=== PATIENT | female | born 1940 | race Caucasian/White ===

== ENCOUNTER 2021-07-21 01:04 | Inpatient (IN) | payer MEDICARE ==
[2021-07-21 01:54] LABS: #Basophils 0.1 thou/uL (0.0-0.2); #Eosinphils 0.1 thou/uL (0.0-0.7); #Lymphocytes 0.4 thou/uL (1.20-3.40); #Monocytes 1.6 thou/uL (0.11-0.59); #Neutrophils 13.9 thou/uL (1.40-6.50); %Basophils 0.6 % (0.0-1.0); %Eosinophils 0.4 % (0.0-10.0); %Lymphocytes 2.5 % (21.0-51.0); %Monocytes 9.8 % (0.0-10.0); %Neutrophils 86.6 % (42.0-75.0); Hemoglobin 9.8 g/dL (12.0-16.0); Mean Corpuscular HGB CONC 33.3 g/dL (32.0-36.0); Mean Corpuscular Hemoglobin 32.2 pg (27.0-31.0); Mean Corpuscular Volume 96.8 fL (78.0-98.0); Mean Platelet Volume 6.9 fL (7.4-10.4); Platelet Count 373 thou/uL (130-400); RBC Distribution Width 12.4 % (11.5-14.5); Red Blood Cell (RBC) Count 3.04 mill/uL (4.20-5.40)
[2021-07-21 02:42] LABS: ALT (SGPT) 20 U/L (8-55); AST (SGOT) 30 U/L (5-34); Albumin 2.7 g/dL (3.4-4.8); Alkaline Phosphatase 81 U/L (40-110); Anion Gap 16 mmol/L (10-20); BUN (Urea Nitrogen) 9 mg/dL (9.8-20.1); Bilirubin, Total 0.3 mg/dL (0.2-1.2); Calc. Creatinine Clearance 0 mL/min (70-130); Carbon Dioxide 35 mmol/L (23-31); Chloride 80 mmol/L (98-107); Globulin 4.1 g/dL (2.4-3.5); Glucose 159 mg/dL (83-110); Potassium 4.7 mmol/L (3.5-5.1); Protein, Total 6.8 g/dL (5.8-8.1); Sodium 126 mmol/L (136-145)
[2021-07-21 02:44] LABS: Actual Bicarbonate (HCO3a) 44.2 mEq/L (22-28); Analyzer IN Cardio ER; Base Excess (BEa) 13.9 mEq/L (-2.0 to +3.0); Calcium, Ionized (arterial) 1.15 mmol/L (1.12-1.30); Carboxyhemoglobin (COHb) 0.3 gm% (0.0-3.0); Hemoglobin (Hb) 10.8 g/dL (12.0-16.0); O2 Tension (PaO2), arterial 75.5 mmHg (> 70.0); Potassium - ABG Lab 4.38 mmol/L (3.70-5.30); pH, Arterial 7.27 (7.35-7.45)
[2021-07-21 02:49] LABS: Puncture Site RBA
[2021-07-21] MEDS ORDERED: Acetaminophen 325 MG TAB PO PRN (03:15)
[2021-07-21] MEDS ORDERED: Vancomycin 1 GM/200 ML BAG ONE (04:51)
[2021-07-21] MEDS ORDERED: Cefepime 2 GM VIAL ONE (04:51)
[2021-07-21 05:31] LABS: SARS-CoV-2 NAA Rapid Test Not Detected (NotDetected)
[2021-07-21 07:19] LABS: Anion Gap 12 mmol/L (10-20); BUN (Urea Nitrogen) 9 mg/dL (9.8-20.1); Calc. Creatinine Clearance 108 mL/min (70-130); Calcium 9.2 mg/dL (7.8-10.44); Carbon Dioxide 37 mmol/L (23-31); Chloride 82 mmol/L (98-107); Glucose 130 mg/dL (83-110); Potassium 4.5 mmol/L (3.5-5.1); Sodium 126 mmol/L (136-145)
[2021-07-21] MEDS: Cefepime 1 GM in Sodium Chloride 0.9% 100 ML IVPB SCH ×2 (08:33→22:36)
[2021-07-21] MEDS: methylPREDNISolone Sod Succ 40 MG VIAL IVP SCH ×2 (14:15→22:36)
[2021-07-21] MEDS: Mometasone 200 MCG/Formoterol 5 MCG 120 PUFF INHALER INH SCH (19:30)
[2021-07-21] MEDS: Diltiazem HCl 125 MG, Admixture Fee 1 EACH in Sodium Chloride 0.9% 100 ML IVPB SCH (19:41)
[2021-07-21] MEDS ORDERED: Apixaban 5 MG TAB PO SCH (21:00)
[2021-07-21] MEDS ORDERED: Amiodarone 150 MG, Admixture Fee 1 EACH in Dextrose 5% in Water 100 ML IVPB SCH (22:15)
[2021-07-21] MEDS: Acetaminophen 325 MG TAB PO PRN (22:36)
[2021-07-21] MEDS: Amiodarone 450 MG, Admixture Fee 1 EACH in Dextrose 5% in Water 250 ML IVPB SCH (23:19)
[2021-07-22] MEDS: Diltiazem HCl 125 MG, Admixture Fee 1 EACH in Sodium Chloride 0.9% 100 ML IVPB SCH (03:55)
[2021-07-22 04:01] LABS: #Basophils 0.1 thou/uL (0.0-0.2); #Lymphocytes 0.2 thou/uL (1.20-3.40); #Monocytes 0.2 thou/uL (0.11-0.59); #Neutrophils 8.9 thou/uL (1.40-6.50); %Basophils 1.2 % (0.0-1.0); %Eosinophils 0.1 % (0.0-10.0); %Lymphocytes 1.6 % (21.0-51.0); %Monocytes 2.3 % (0.0-10.0); %Neutrophils 94.9 % (42.0-75.0); Mean Corpuscular HGB CONC 33.6 g/dL (32.0-36.0); Mean Corpuscular Hemoglobin 32.3 pg (27.0-31.0); Mean Platelet Volume 6.8 fL (7.4-10.4); Platelet Count 321 thou/uL (130-400); RBC Distribution Width 12.5 % (11.5-14.5); White Blood Cell (WBC) Count 9.4 thou/uL (4.8-10.8)
[2021-07-22 04:19] LABS: Anion Gap 18 mmol/L (10-20); BUN (Urea Nitrogen) 11 mg/dL (9.8-20.1); Calc. Creatinine Clearance 111 mL/min (70-130); Calcium 8.8 mg/dL (7.8-10.44); Carbon Dioxide 34 mmol/L (23-31); Chloride 83 mmol/L (98-107); Glucose 153 mg/dL (83-110); Potassium 4.8 mmol/L (3.5-5.1); Sodium 130 mmol/L (136-145)
[2021-07-22] MEDS: methylPREDNISolone Sod Succ 40 MG VIAL IVP SCH ×3 (05:14→22:11)
[2021-07-22] MEDS: Mometasone 200 MCG/Formoterol 5 MCG 120 PUFF INHALER INH SCH ×2 (08:16→18:47)
[2021-07-22] MEDS: Cefepime 1 GM in Sodium Chloride 0.9% 100 ML IVPB SCH ×2 (08:42→20:26)
[2021-07-22] MEDS: Amiodarone 450 MG, Admixture Fee 1 EACH in Dextrose 5% in Water 250 ML IVPB SCH (14:03)
[2021-07-22] MEDS: Ondansetron PF 4 MG/2 ML Vial IVP PRN (18:27)
[2021-07-22] MEDS: Metoprolol Tartrate 25 MG TAB PO SCH (20:26)
[2021-07-22] MEDS: Acetaminophen 325 MG TAB PO PRN (22:11)
[2021-07-23] MEDS: Diltiazem HCl 125 MG, Admixture Fee 1 EACH in Sodium Chloride 0.9% 100 ML IVPB SCH ×2 (03:22→17:25)
[2021-07-23] MEDS: methylPREDNISolone Sod Succ 40 MG VIAL IVP SCH ×3 (05:46→21:05)
[2021-07-23] MEDS: Amiodarone 450 MG, Admixture Fee 1 EACH in Dextrose 5% in Water 250 ML IVPB SCH (05:46)
[2021-07-23] MEDS: Mometasone 200 MCG/Formoterol 5 MCG 120 PUFF INHALER INH SCH ×2 (07:44→18:48)
[2021-07-23] MEDS: Cefepime 1 GM in Sodium Chloride 0.9% 100 ML IVPB SCH ×2 (09:14→21:05)
[2021-07-23] MEDS: Metoprolol Tartrate 25 MG TAB PO SCH ×2 (09:14→21:06)
[2021-07-23 09:46] LABS: Mean Corpuscular HGB CONC 30.7 g/dL (32.0-36.0); Mean Corpuscular Hemoglobin 29.2 pg (27.0-31.0); Mean Platelet Volume 6.7 fL (7.4-10.4); Platelet Count 438 thou/uL (130-400); RBC Distribution Width 12.9 % (11.5-14.5); Red Blood Cell (RBC) Count 3.09 mill/uL (4.20-5.40); White Blood Cell (WBC) Count 30.2 thou/uL (4.8-10.8)
[2021-07-23 10:00] LABS: Anion Gap 14 mmol/L (10-20); BUN (Urea Nitrogen) 18 mg/dL (9.8-20.1); Calc. Creatinine Clearance 81 mL/min (70-130); Calcium 9.1 mg/dL (7.8-10.44); Carbon Dioxide 36 mmol/L (23-31); Chloride 85 mmol/L (98-107); Glucose 248 mg/dL (83-110); Potassium 4.3 mmol/L (3.5-5.1); Sodium 131 mmol/L (136-145)
[2021-07-23 10:29] LABS: Band 14 % (5-11); Lymphocytes 1 % (21-51); MDiff Complete? YES; Monocytes 12 % (0-10); Neutrophil 73 % (42-75); Platelet Morphology Comment Appears Increased; Polychromasia SLIGHT = 2-3 cells (100X) (0-2/hpf)
[2021-07-23] MEDS: Amiodarone 200 MG TAB PO SCH ×2 (14:37→21:05)
[2021-07-23] MEDS: Ondansetron PF 4 MG/2 ML Vial IVP PRN (18:25)
[2021-07-23] MEDS: Acetaminophen 325 MG TAB PO PRN (21:06)
[2021-07-24 04:33] LABS: Hemoglobin 8.8 g/dL (12.0-16.0); Mean Corpuscular Hemoglobin 30.7 pg (27.0-31.0); Mean Platelet Volume 6.9 fL (7.4-10.4); Platelet Count 358 thou/uL (130-400); RBC Distribution Width 12.9 % (11.5-14.5); Red Blood Cell (RBC) Count 2.87 mill/uL (4.20-5.40); White Blood Cell (WBC) Count 27.7 thou/uL (4.8-10.8)
[2021-07-24 04:44] LABS: BUN (Urea Nitrogen) 22 mg/dL (9.8-20.1); Calc. Creatinine Clearance 87 mL/min (70-130); Calcium 8.9 mg/dL (7.8-10.44); Glucose 212 mg/dL (83-110)
[2021-07-24 04:53] LABS: Anion Gap 13 mmol/L (10-20); Carbon Dioxide 37 mmol/L (23-31); Chloride 86 mmol/L (98-107); Potassium 4.8 mmol/L (3.5-5.1); Sodium 131 mmol/L (136-145)
[2021-07-24 05:12] LABS: Band 7 % (5-11); MDiff Complete? YES; Monocytes 1 % (0-10); Neutrophil 92 % (42-75)
[2021-07-24] MEDS: methylPREDNISolone Sod Succ 40 MG VIAL IVP SCH ×3 (05:32→21:04)
[2021-07-24] MEDS: Mometasone 200 MCG/Formoterol 5 MCG 120 PUFF INHALER INH SCH ×2 (08:00→18:29)
[2021-07-24] MEDS: Metoprolol Tartrate 25 MG TAB PO SCH ×2 (08:55→21:03)
[2021-07-24] MEDS: Cefepime 1 GM in Sodium Chloride 0.9% 100 ML IVPB SCH ×2 (08:55→21:02)
[2021-07-24] MEDS: Diltiazem HCl 125 MG, Admixture Fee 1 EACH in Sodium Chloride 0.9% 100 ML IVPB SCH (08:55)
[2021-07-24] MEDS: Amiodarone 200 MG TAB PO SCH ×3 (08:55→21:03)
[2021-07-24] MEDS: Acetaminophen 325 MG TAB PO PRN (21:03)
[2021-07-25 04:47] LABS: #Lymphocytes 0.3 thou/uL (1.20-3.40); #Monocytes 0.8 thou/uL (0.11-0.59); #Neutrophils 20.5 thou/uL (1.40-6.50); %Eosinophils 0.1 % (0.0-10.0); %Lymphocytes 1.2 % (21.0-51.0); %Monocytes 3.6 % (0.0-10.0); %Neutrophils 95.1 % (42.0-75.0); Mean Corpuscular HGB CONC 31.4 g/dL (32.0-36.0); Mean Corpuscular Hemoglobin 30.2 pg (27.0-31.0); Mean Corpuscular Volume 96.1 fL (78.0-98.0); Mean Platelet Volume 6.7 fL (7.4-10.4); Platelet Count 333 thou/uL (130-400); RBC Distribution Width 12.7 % (11.5-14.5); Red Blood Cell (RBC) Count 2.98 mill/uL (4.20-5.40); White Blood Cell (WBC) Count 21.6 thou/uL (4.8-10.8)
[2021-07-25 04:55] LABS: Anion Gap 13 mmol/L (10-20); BUN (Urea Nitrogen) 25 mg/dL (9.8-20.1); Calc. Creatinine Clearance 89 mL/min (70-130); Calcium 8.6 mg/dL (7.8-10.44); Carbon Dioxide 36 mmol/L (23-31); Chloride 89 mmol/L (98-107); Glucose 206 mg/dL (83-110); Potassium 4.8 mmol/L (3.5-5.1); Sodium 133 mmol/L (136-145)
[2021-07-25] MEDS: methylPREDNISolone Sod Succ 40 MG VIAL IVP SCH ×3 (05:40→21:06)
[2021-07-25] MEDS: Diltiazem HCl 125 MG, Admixture Fee 1 EACH in Sodium Chloride 0.9% 100 ML IVPB SCH (05:41)
[2021-07-25] MEDS: Mometasone 200 MCG/Formoterol 5 MCG 120 PUFF INHALER INH SCH ×2 (07:12→18:53)
[2021-07-25] MEDS: Amiodarone 200 MG TAB PO SCH ×3 (08:42→21:05)
[2021-07-25] MEDS: Metoprolol Tartrate 25 MG TAB PO SCH (08:42)
[2021-07-25] MEDS: Cefepime 1 GM in Sodium Chloride 0.9% 100 ML IVPB SCH ×2 (08:43→21:04)
[2021-07-25] MEDS ORDERED: Furosemide 40 MG/4 ML VIAL SLOW IVP SCH (14:45)
[2021-07-25] MEDS ORDERED: Furosemide 40 MG TAB PO SCH (14:45)
[2021-07-25] MEDS ORDERED: Metoprolol Tartrate 25 MG TAB PO SCH (21:00)
[2021-07-25] MEDS: Acetaminophen 325 MG TAB PO PRN (21:05)
[2021-07-26 05:16] LABS: BUN (Urea Nitrogen) 23 mg/dL (9.8-20.1); Calc. Creatinine Clearance 90 mL/min (70-130); Calcium 8.9 mg/dL (7.8-10.44); Glucose 193 mg/dL (83-110)
[2021-07-26 05:21] LABS: Band 3 % (5-11); Hemoglobin 9.8 g/dL (12.0-16.0); Hypochromia SLIGHT = 6-15 cells (100X) (0-5/hpf); Lymphocytes 3 % (21-51); MDiff Complete? YES; Mean Corpuscular HGB CONC 31.7 g/dL (32.0-36.0); Mean Corpuscular Hemoglobin 30.5 pg (27.0-31.0); Mean Corpuscular Volume 96.3 fL (78.0-98.0); Mean Platelet Volume 6.7 fL (7.4-10.4); Monocytes 8 % (0-10); Neutrophil 86 % (42-75); Platelet Count 358 thou/uL (130-400); Platelet Morphology Comment Appears Adequate; RBC Distribution Width 12.9 % (11.5-14.5); Red Blood Cell (RBC) Count 3.21 mill/uL (4.20-5.40); White Blood Cell (WBC) Count 21.6 thou/uL (4.8-10.8)
[2021-07-26 05:25] LABS: Anion Gap 15 mmol/L (10-20); Carbon Dioxide 36 mmol/L (23-31); Chloride 88 mmol/L (98-107); Potassium 4.1 mmol/L (3.5-5.1); Sodium 135 mmol/L (136-145)
[2021-07-26] MEDS: methylPREDNISolone Sod Succ 40 MG VIAL IVP SCH ×3 (05:29→21:41)
[2021-07-26] MEDS ORDERED: Digoxin 0.5 MG/2 ML AMP SLOW IVP SCH ×2 (08:15→11:00)
[2021-07-26] MEDS: Mometasone 200 MCG/Formoterol 5 MCG 120 PUFF INHALER INH SCH ×2 (08:22→19:44)
[2021-07-26] MEDS ORDERED: Furosemide 40 MG/4 ML VIAL SLOW IVP SCH (08:30)
[2021-07-26] MEDS ORDERED: Furosemide 40 MG TAB PO SCH (09:00)
[2021-07-26] MEDS: Potassium Chloride 20 MEQ TAB PO SCH ×2 (09:12→15:48)
[2021-07-26] MEDS: Metoprolol Tartrate 25 MG TAB PO SCH ×2 (09:12→21:41)
[2021-07-26] MEDS: Amiodarone 200 MG TAB PO SCH ×3 (09:12→21:41)
[2021-07-26] MEDS: Cefepime 1 GM in Sodium Chloride 0.9% 100 ML IVPB SCH ×2 (09:13→21:43)
[2021-07-26] MEDS ORDERED: Lidocaine 4% PF 5 ML AMP NEB SCH (10:15)
[2021-07-26] MEDS: Ondansetron PF 4 MG/2 ML Vial IVP PRN (11:44)
[2021-07-26] MEDS: Furosemide 20 MG/2 ML VIAL SLOW IVP SCH (15:47)
[2021-07-26] MEDS: Acetaminophen 325 MG TAB PO PRN (21:41)
[2021-07-27 04:05] LABS: Anion Gap 17 mmol/L (10-20); BUN (Urea Nitrogen) 26 mg/dL (9.8-20.1); Calc. Creatinine Clearance 80 mL/min (70-130); Calcium 8.4 mg/dL (7.8-10.44); Carbon Dioxide 32 mmol/L (23-31); Chloride 89 mmol/L (98-107); Glucose 274 mg/dL (83-110); Potassium 5.8 mmol/L (3.5-5.1); Sodium 132 mmol/L (136-145)
[2021-07-27] MEDS: methylPREDNISolone Sod Succ 40 MG VIAL IVP SCH ×2 (05:37→15:09)
[2021-07-27] MEDS: Furosemide 20 MG/2 ML VIAL SLOW IVP SCH ×2 (05:38→15:09)
[2021-07-27] MEDS: Mometasone 200 MCG/Formoterol 5 MCG 120 PUFF INHALER INH SCH ×2 (07:50→19:53)
[2021-07-27] MEDS: Digoxin 0.125 MG TAB PO SCH (09:20)
[2021-07-27] MEDS: Amiodarone 200 MG TAB PO SCH ×3 (09:20→20:52)
[2021-07-27] MEDS: Metoprolol Tartrate 25 MG TAB PO SCH ×3 (09:20→20:51)
[2021-07-27] MEDS: Potassium Chloride 20 MEQ TAB PO SCH (09:20)
[2021-07-27] MEDS: Cefepime 1 GM in Sodium Chloride 0.9% 100 ML IVPB SCH ×2 (09:20→20:52)
[2021-07-27] MEDS ORDERED: Bupivacaine PF 0.5% 30 ML VIAL ONE (10:02)
[2021-07-27] MEDS ORDERED: Dexamethasone 4 mg/ml Vial ONE (10:02)
[2021-07-27] MEDS ORDERED: EPINEPHrine 1 MG/ML AMP ONE (10:02)
[2021-07-27] MEDS ORDERED: Iothalamate Meglumine 60% 50 ML VIAL FS ONE (10:02)
[2021-07-27] MEDS ORDERED: Fentanyl 100 MCG/2 ML VIAL ONE (10:12)
[2021-07-27] MEDS ORDERED: PROPOFOL 200 MG/20 ML VIAL ONE (10:28)
[2021-07-27] MEDS ORDERED: Glycopyrrolate 0.2 MG/ML 5 ML SYRINGE ONE (10:28)
[2021-07-27] MEDS ORDERED: Rocuronium Bromide 10 MG/ML (10ML VIAL) ONE (10:28)
[2021-07-27] MEDS ORDERED: Esmolol 100 MG/10 ML VIAL ONE (10:28)
[2021-07-27] MEDS ORDERED: Lidocaine 1% PF 5 ML VIAL ONE (10:28)
[2021-07-27] MEDS: Acetaminophen 325 MG TAB PO PRN ×2 (13:07→20:51)
[2021-07-27 20:15] LABS: SARS-CoV-2 PCR by NAA Not Detected (NotDetected)
[2021-07-28 04:04] LABS: Hemoglobin 9.7 g/dL (12.0-16.0); Mean Corpuscular HGB CONC 31.3 g/dL (32.0-36.0); Mean Corpuscular Hemoglobin 30.2 pg (27.0-31.0); Mean Corpuscular Volume 96.3 fL (78.0-98.0); Mean Platelet Volume 6.8 fL (7.4-10.4); Platelet Count 331 thou/uL (130-400); RBC Distribution Width 12.8 % (11.5-14.5); White Blood Cell (WBC) Count 28.6 thou/uL (4.8-10.8)
[2021-07-28 04:18] LABS: BUN (Urea Nitrogen) 25 mg/dL (9.8-20.1); CRP (Inflammatory) 1.67 mg/dL (= or < 0.5); Calc. Creatinine Clearance 100 mL/min (70-130); Calcium 8.6 mg/dL (7.8-10.44); Glucose 239 mg/dL (83-110)
[2021-07-28 04:27] LABS: Anion Gap 18 mmol/L (10-20); Carbon Dioxide 35 mmol/L (23-31); Chloride 88 mmol/L (98-107); Potassium 5.6 mmol/L (3.5-5.1); Sodium 135 mmol/L (136-145)
[2021-07-28 04:49] LABS: Band 3 % (5-11); Lymphocytes 3 % (21-51); MDiff Complete? YES; Monocytes 6 % (0-10); Neutrophil 88 % (42-75)
[2021-07-28] MEDS: Furosemide 20 MG/2 ML VIAL SLOW IVP SCH (05:46)
[2021-07-28] MEDS: Mometasone 200 MCG/Formoterol 5 MCG 120 PUFF INHALER INH SCH ×2 (07:33→19:00)
[2021-07-28] MEDS: Cefepime 1 GM in Sodium Chloride 0.9% 100 ML IVPB SCH ×2 (09:47→20:27)
[2021-07-28] MEDS: methylPREDNISolone Sod Succ 40 MG VIAL IVP SCH (09:47)
[2021-07-28] MEDS: Potassium Chloride 20 MEQ TAB PO SCH (09:48)
[2021-07-28] MEDS: Amiodarone 200 MG TAB PO SCH ×3 (09:48→20:27)
[2021-07-28] MEDS: Metoprolol Tartrate 25 MG TAB PO SCH ×2 (09:48→20:27)
[2021-07-28] MEDS: Digoxin 0.125 MG TAB PO SCH (09:48)
[2021-07-28 12:23] VITALS: BMI 33.0
[2021-07-28] MEDS: Furosemide 40 MG/4 ML VIAL SLOW IVP SCH (14:30)
[2021-07-28] MEDS: Apixaban 5 MG TAB PO SCH (20:27)
[2021-07-28] MEDS: Acetaminophen 325 MG TAB PO PRN (20:27)
[2021-07-29] MEDS: Furosemide 40 MG/4 ML VIAL SLOW IVP SCH (05:46)
[2021-07-29] MEDS: Mometasone 200 MCG/Formoterol 5 MCG 120 PUFF INHALER INH SCH ×2 (07:24→18:45)
[2021-07-29] MEDS: Digoxin 0.125 MG TAB PO SCH (08:32)
[2021-07-29] MEDS: Metoprolol Tartrate 25 MG TAB PO SCH ×2 (08:32→21:05)
[2021-07-29] MEDS: Cefepime 1 GM in Sodium Chloride 0.9% 100 ML IVPB SCH (08:32)
[2021-07-29] MEDS: Apixaban 5 MG TAB PO SCH ×2 (08:32→21:05)
[2021-07-29] MEDS: Amiodarone 200 MG TAB PO SCH ×2 (08:32→21:05)
[2021-07-29] MEDS: Potassium Chloride 20 MEQ TAB PO SCH (08:33)
[2021-07-29] MEDS: methylPREDNISolone Sod Succ 40 MG VIAL IVP SCH (08:36)
[2021-07-29] MEDS ORDERED: Aspirin Chewable 81 MG TAB PO SCH (09:00)
[2021-07-29 11:23] LABS: Hemoglobin 10.3 g/dL (12.0-16.0); Mean Corpuscular HGB CONC 30.2 g/dL (32.0-36.0); Mean Corpuscular Hemoglobin 29.6 pg (27.0-31.0); Platelet Count 299 thou/uL (130-400); RBC Distribution Width 13.2 % (11.5-14.5); Red Blood Cell (RBC) Count 3.48 mill/uL (4.20-5.40); White Blood Cell (WBC) Count 27.8 thou/uL (4.8-10.8)
[2021-07-29 11:46] LABS: Anion Gap 15 mmol/L (10-20); BUN (Urea Nitrogen) 21 mg/dL (9.8-20.1); CRP (Inflammatory) 3.33 mg/dL (= or < 0.5); Calc. Creatinine Clearance 97 mL/min (70-130); Calcium 8.3 mg/dL (7.8-10.44); Carbon Dioxide 36 mmol/L (23-31); Chloride 88 mmol/L (98-107); Glucose 224 mg/dL (83-110); Potassium 4.5 mmol/L (3.5-5.1); Sodium 134 mmol/L (136-145)
[2021-07-29 12:05] LABS: Band 11 % (5-11); Lymphocytes 4 % (21-51); MDiff Complete? YES; Monocytes 1 % (0-10); Neutrophil 84 % (42-75); Platelet Morphology Comment Appears Adequate; Polychromasia SLIGHT = 2-3 cells (100X) (0-2/hpf)
[2021-07-29] MEDS ORDERED: Furosemide 40 MG/4 ML VIAL SLOW IVP SCH (15:00)
[2021-07-29] MEDS: Acetaminophen 325 MG TAB PO PRN (21:04)
[2021-07-30] MEDS: Mometasone 200 MCG/Formoterol 5 MCG 120 PUFF INHALER INH SCH ×2 (06:29→18:09)
[2021-07-30] MEDS ORDERED: Furosemide 40 MG TAB PO SCH (07:30)
[2021-07-30] MEDS: Amiodarone 200 MG TAB PO SCH ×2 (09:02→21:02)
[2021-07-30] MEDS: Apixaban 5 MG TAB PO SCH ×2 (09:02→21:02)
[2021-07-30] MEDS: Digoxin 0.125 MG TAB PO SCH (09:02)
[2021-07-30] MEDS: methylPREDNISolone Sod Succ 40 MG VIAL IVP SCH (09:03)
[2021-07-30] MEDS: Potassium Chloride 20 MEQ TAB PO SCH (09:05)
[2021-07-30 13:20] LABS: Potassium 4.4 mmol/L (3.5-5.1)
[2021-07-30] MEDS ORDERED: Furosemide 40 MG/4 ML VIAL SLOW IVP SCH (21:00)
[2021-07-30] MEDS: Acetaminophen 325 MG TAB PO PRN (21:22)
[2021-07-31] MEDS: Mometasone 200 MCG/Formoterol 5 MCG 120 PUFF INHALER INH SCH ×2 (07:58→18:40)
[2021-07-31] MEDS ORDERED: Furosemide 40 MG/4 ML VIAL SLOW IVP SCH (09:00)
[2021-07-31] MEDS: Apixaban 5 MG TAB PO SCH ×2 (09:40→21:54)
[2021-07-31] MEDS: Amiodarone 200 MG TAB PO SCH ×2 (09:40→21:54)
[2021-07-31] MEDS: predniSONE 20 MG TAB PO SCH (09:40)
[2021-07-31] MEDS: Potassium Chloride 20 MEQ TAB PO SCH (09:40)
[2021-07-31] MEDS: Digoxin 0.125 MG TAB PO SCH (09:41)
[2021-07-31] MEDS: Furosemide 40 MG TAB PO SCH (14:07)
[2021-07-31 18:18] LABS: BUN (Urea Nitrogen) 25 mg/dL (9.8-20.1); Calc. Creatinine Clearance 78 mL/min (70-130); Calcium 8.3 mg/dL (7.8-10.44); Glucose 302 mg/dL (83-110)
[2021-07-31 18:29] LABS: Anion Gap 20 mmol/L (10-20); Carbon Dioxide 31 mmol/L (23-31); Chloride 90 mmol/L (98-107); Potassium 4.9 mmol/L (3.5-5.1); Sodium 136 mmol/L (136-145)
[2021-07-31] MEDS: Acetaminophen 325 MG TAB PO PRN (21:53)
[2021-08-01] MEDS: Mometasone 200 MCG/Formoterol 5 MCG 120 PUFF INHALER INH SCH ×2 (08:05→18:19)
[2021-08-01] MEDS: Digoxin 0.125 MG TAB PO SCH (09:25)
[2021-08-01] MEDS: Amiodarone 200 MG TAB PO SCH ×2 (09:26→21:04)
[2021-08-01] MEDS: predniSONE 20 MG TAB PO SCH (09:26)
[2021-08-01] MEDS: Furosemide 40 MG TAB PO SCH ×2 (09:26→13:50)
[2021-08-01] MEDS: Potassium Chloride 20 MEQ TAB PO SCH (09:26)
[2021-08-01] MEDS: Apixaban 5 MG TAB PO SCH ×2 (09:26→21:04)
[2021-08-01] MEDS: Furosemide 20 MG/2 ML VIAL SLOW IVP SCH (16:09)
[2021-08-01] MEDS: Acetaminophen 325 MG TAB PO PRN ×2 (16:18→21:04)
[2021-08-02] MEDS: Furosemide 20 MG/2 ML VIAL SLOW IVP SCH (06:00)
[2021-08-02] MEDS: Mometasone 200 MCG/Formoterol 5 MCG 120 PUFF INHALER INH SCH ×2 (07:40→19:00)
[2021-08-02] MEDS: Digoxin 0.125 MG TAB PO SCH (09:01)
[2021-08-02] MEDS: Apixaban 5 MG TAB PO SCH ×2 (09:02→20:37)
[2021-08-02] MEDS: Potassium Chloride 20 MEQ TAB PO SCH (09:03)
[2021-08-02] MEDS: Amiodarone 200 MG TAB PO SCH ×2 (09:04→20:37)
[2021-08-02] MEDS: predniSONE 20 MG TAB PO SCH (09:05)
[2021-08-02] MEDS: Furosemide 40 MG TAB PO SCH (20:37)
[2021-08-02] MEDS: Acetaminophen 325 MG TAB PO PRN (20:40)
[2021-08-03] MEDS: Mometasone 200 MCG/Formoterol 5 MCG 120 PUFF INHALER INH SCH (08:27)
[2021-08-03 09:14] VITALS: BP 131/55; TEMP 98.4
[2021-08-03] MEDS: Apixaban 5 MG TAB PO SCH (09:29)
[2021-08-03] MEDS: Amiodarone 200 MG TAB PO SCH (09:29)
[2021-08-03] MEDS: predniSONE 20 MG TAB PO SCH (09:29)
[2021-08-03] MEDS: Furosemide 40 MG TAB PO SCH (09:30)
[2021-08-03] MEDS: Digoxin 0.125 MG TAB PO SCH (09:30)
[2021-08-03] MEDS: Potassium Chloride 20 MEQ TAB PO SCH ×2 (09:31→11:45)
== END 2021-08-03 17:30 | disposition home or self-care (01) | DRG 166 ==
LOC: ERS 01:04 → ERHOLD 03:10 → CCU 05:43 → IMCU/EMU 22:31 → MSONC 07-30 17:23
PROVIDERS: ADMIT Internal Medicine; ATTEND Internal Medicine
PROC: 5A09457 Assistance with Respiratory Ventilation, 24-96 Consecutive Hours, Continuous Positive Airway Pressure (ICD-10-PCS; 2021-07-21)
PROC: 0BBC8ZX Excision of Right Upper Lung Lobe, Via Natural or Artificial Opening Endoscopic, Diagnostic (ICD-10-PCS; principal; 2021-07-27)
PROC: 0WP9X0Z Removal of Drainage Device from Right Pleural Cavity, External Approach (ICD-10-PCS; 2021-07-27)
PROC: 0B9C8ZX Drainage of Right Upper Lung Lobe, Via Natural or Artificial Opening Endoscopic, Diagnostic (ICD-10-PCS; 2021-07-27)
DX: C34.11 Malignant neoplasm of upper lobe, right bronchus or lung (principal); J96.21 Acute and chronic respiratory failure with hypoxia; J96.22 Acute and chronic respiratory failure with hypercapnia; I50.33 Acute on chronic diastolic (congestive) heart failure; J44.1 Chronic obstructive pulmonary disease with (acute) exacerbation; J91.0 Malignant pleural effusion; E87.1 Hypo-osmolality and hyponatremia; J98.11 Atelectasis; I48.11 Longstanding persistent atrial fibrillation; T85.698A Other mechanical complication of other specified internal prosthetic devices, implants and grafts, initial encounter; Z20.822 Contact with and (suspected) exposure to COVID-19; I11.0 Hypertensive heart disease with heart failure; I08.1 Rheumatic disorders of both mitral and tricuspid valves; I27.20 Pulmonary hypertension, unspecified; Y84.8 Other medical procedures as the cause of abnormal reaction of the patient, or of later complication, without mention of misadventure at the time of the procedure; Z88.6 Allergy status to analgesic agent; Z88.5 Allergy status to narcotic agent; Z88.8 Allergy status to other drugs, medicaments and biological substances; Z87.891 Personal history of nicotine dependence; Z99.81 Dependence on supplemental oxygen; Z90.49 Acquired absence of other specified parts of digestive tract; Z80.0 Family history of malignant neoplasm of digestive organs; Z79.899 Other long term (current) drug therapy; Z79.82 Long term (current) use of aspirin; Z79.01 Long term (current) use of anticoagulants
CPT/HCPCS: 0240U; 36415; 36600; 71045; 71250; 80048; 80053; 82805; 83880; 83930; 84132; 84145; 85025; 85379; 86140; 87040; 88112; 88305; 88341; 88342; 93005; 93306; 94640; 94660; 96374; J0171; J0282; J0692; J1100; J1160; J1940; J2405; J2704; J2920; J3010; J3370; J3490; J7070; J7512; J7620; Q9961-U8; S0020; U0003; U0005

== ENCOUNTER 2021-08-19 12:30 | Outpatient (CLI) | payer MEDICARE | END 2021-08-19 12:31 | disposition home or self-care (01) | LOC: PET 12:30 | PROVIDERS: ATTEND Internal Medicine Hematology & Oncology | DX: C34.01 Malignant neoplasm of right main bronchus (principal) | CPT/HCPCS: 70553 ==

== ENCOUNTER 2021-08-26 15:30 | Day surgery (SDC) | payer MEDICARE ==
[2021-08-26] MEDS ORDERED: Acetaminophen 500 MG TAB PO SCH (16:15)
[2021-08-26] MEDS ORDERED: diphenhydrAMINE 25 MG CAP PO SCH (16:15)
[2021-08-26] MEDS ORDERED: predniSONE 5 MG TAB PO SCH (22:30)
[2021-08-26] MEDS ORDERED: Furosemide 20 MG/2 ML VIAL SLOW IVP SCH (22:30)
[2021-08-27 08:19] VITALS: BP 154/66; TEMP 98.2
== END 2021-08-27 09:40 | disposition home or self-care (01) ==
LOC: MSONC 15:30 → ONC/OP 15:30
PROVIDERS: ATTEND Internal Medicine Hematology & Oncology
PROC: 30233N1 Transfusion of Nonautologous Red Blood Cells into Peripheral Vein, Percutaneous Approach (ICD-10-PCS; principal; 2021-08-26)
DX: D64.9 Anemia, unspecified (principal); D69.6 Thrombocytopenia, unspecified; Z88.5 Allergy status to narcotic agent; Z88.8 Allergy status to other drugs, medicaments and biological substances
CPT/HCPCS: 36415; 36430; 86850; 86900; 86901; 94640; J1940; J7512; J7620; P9016

== ENCOUNTER 2021-08-31 05:08 | Inpatient (IN) | payer MEDICARE ==
[2021-08-31] MEDS ORDERED: VANC IVPB PRN (09:06)
[2021-08-31] MEDS ORDERED: Piperacillin/Tazobactam 3.375 GM in Sodium Chloride 0.9% 100 ML IVPB SCH ×2 (09:15→10:00)
[2021-08-31] MEDS ORDERED: Ondansetron PF 4 MG/2 ML Vial IVP PRN (09:29)
[2021-08-31] MEDS: Furosemide 40 MG/4 ML VIAL SLOW IVP SCH ×2 (11:02→20:50)
[2021-08-31] MEDS ORDERED: methylPREDNISolone Sod Succ 40 MG VIAL IVP SCH (14:00)
[2021-08-31 14:27] LABS: Actual Bicarbonate (HCO3a) 45.2 mEq/L (22-28); Base Excess (BEa) 15.6 mEq/L (-2.0 to +3.0); Calcium, Ionized (arterial) 1.18 mmol/L (1.12-1.30); Carboxyhemoglobin (COHb) 0.8 gm% (0.0-3.0); Hemoglobin (Hb) 9.2 g/dL (12.0-16.0); O2 Tension (PaO2), arterial 206.6 mmHg (> 70.0); Potassium - ABG Lab 5.03 mmol/L (3.70-5.30); pH, Arterial 7.28 (7.35-7.45)
[2021-08-31 14:30] LABS: ALV-art Gradient 240.675 mmHg (0-20); CO2 Tension 98.5 mmHg (35.0-45.0); Puncture Site LRA
[2021-08-31] MEDS: VANCOMYCIN 1.25 GM/250 ML BAG 1.25 GM in Premix Bag 1 BAG IVPB SCH (17:06)
[2021-08-31] MEDS: Piperacillin/Tazobactam 3.375 GM in Sodium Chloride 0.9% 100 ML IVPB SCH (19:15)
[2021-08-31] MEDS: Apixaban 5 MG TAB PO SCH (20:49)
[2021-08-31] MEDS: Famotidine 20 MG TAB PO SCH (20:49)
[2021-08-31] MEDS: [UNRECOGNIZED DRUG - OTHER] PO SCH (20:50)
[2021-09-01] MEDS: Piperacillin/Tazobactam 3.375 GM in Sodium Chloride 0.9% 100 ML IVPB SCH ×3 (02:29→17:49)
[2021-09-01 03:36] LABS: #Eosinphils 0.1 thou/uL (0.0-0.7); #Lymphocytes 1.1 thou/uL (1.20-3.40); #Monocytes 1.8 thou/uL (0.11-0.59); #Neutrophils 16.7 thou/uL (1.40-6.50); %Eosinophils 0.6 % (0.0-10.0); %Lymphocytes 5.6 % (21.0-51.0); %Monocytes 9.3 % (0.0-10.0); %Neutrophils 84.5 % (42.0-75.0); Mean Corpuscular HGB CONC 29.4 g/dL (32.0-36.0); Mean Corpuscular Volume 98.6 fL (78.0-98.0); Mean Platelet Volume 7.2 fL (7.4-10.4); Platelet Count 357 thou/uL (130-400); Red Blood Cell (RBC) Count 2.74 mill/uL (4.20-5.40); White Blood Cell (WBC) Count 19.8 thou/uL (4.8-10.8)
[2021-09-01 04:25] LABS: Anion Gap 17 mmol/L (10-20); BUN (Urea Nitrogen) 36 mg/dL (9.8-20.1); Calc. Creatinine Clearance 74 mL/min (70-130); Calcium 9.1 mg/dL (7.8-10.44); Carbon Dioxide 35 mmol/L (23-31); Chloride 92 mmol/L (98-107); Glucose 75 mg/dL (83-110); Potassium 5.5 mmol/L (3.5-5.1); Sodium 138 mmol/L (136-145)
[2021-09-01] MEDS ORDERED: [UNRECOGNIZED DRUG - OTHER] FS SCH (09:00)
[2021-09-01] MEDS: Apixaban 5 MG TAB PO SCH ×2 (09:15→20:52)
[2021-09-01] MEDS: Amiodarone 200 MG TAB PO SCH (09:15)
[2021-09-01] MEDS: Digoxin 0.125 MG TAB PO SCH (09:15)
[2021-09-01] MEDS: Famotidine 20 MG TAB PO SCH ×2 (09:15→20:53)
[2021-09-01] MEDS: VANCOMYCIN 1.25 GM/250 ML BAG 1.25 GM in Premix Bag 1 BAG IVPB SCH (09:16)
[2021-09-01] MEDS: Furosemide 40 MG/4 ML VIAL SLOW IVP SCH ×2 (12:38→20:54)
[2021-09-01] MEDS: Ondansetron ODT 4 MG TAB PO PRN (17:49)
[2021-09-01] MEDS: [UNRECOGNIZED DRUG - OTHER] PO SCH (20:53)
[2021-09-02] MEDS: Piperacillin/Tazobactam 3.375 GM in Sodium Chloride 0.9% 100 ML IVPB SCH ×3 (02:13→20:10)
[2021-09-02 03:59] LABS: #Eosinphils 0.1 thou/uL (0.0-0.7); #Lymphocytes 0.8 thou/uL (1.20-3.40); #Monocytes 1.9 thou/uL (0.11-0.59); %Basophils 0.2 % (0.0-1.0); %Eosinophils 0.7 % (0.0-10.0); %Lymphocytes 4.6 % (21.0-51.0); %Monocytes 10.8 % (0.0-10.0); %Neutrophils 83.7 % (42.0-75.0); Hemoglobin 7.8 g/dL (12.0-16.0); Mean Corpuscular Hemoglobin 29.4 pg (27.0-31.0); Mean Corpuscular Volume 97.9 fL (78.0-98.0); Platelet Count 336 thou/uL (130-400); Red Blood Cell (RBC) Count 2.66 mill/uL (4.20-5.40); White Blood Cell (WBC) Count 17.9 thou/uL (4.8-10.8)
[2021-09-02 04:15] LABS: Anion Gap 11 mmol/L (10-20); BUN (Urea Nitrogen) 39 mg/dL (9.8-20.1); Calc. Creatinine Clearance 61 mL/min (70-130); Carbon Dioxide 36 mmol/L (23-31); Chloride 93 mmol/L (98-107); Glucose 159 mg/dL (83-110); Potassium 4.4 mmol/L (3.5-5.1); Sodium 136 mmol/L (136-145)
[2021-09-02] MEDS: Famotidine 20 MG TAB PO SCH ×2 (08:33→20:09)
[2021-09-02] MEDS: Digoxin 0.125 MG TAB PO SCH (08:34)
[2021-09-02] MEDS: Amiodarone 200 MG TAB PO SCH (08:34)
[2021-09-02] MEDS: Apixaban 5 MG TAB PO SCH ×2 (08:34→20:09)
[2021-09-02 09:45] LABS: Digoxin 0.97 ng/mL (0.8-2.0)
[2021-09-02] MEDS ORDERED: Furosemide 40 MG/4 ML VIAL ONE (09:53)
[2021-09-02] MEDS ORDERED: Furosemide 40 MG/4 ML VIAL SLOW IVP SCH (11:00)
[2021-09-02] MEDS: VANCOMYCIN 1.25 GM/250 ML BAG 1.25 GM in Premix Bag 1 BAG IVPB SCH (11:16)
[2021-09-02] MEDS: [UNRECOGNIZED DRUG - OTHER] PO SCH (20:09)
[2021-09-03 03:49] LABS: BUN (Urea Nitrogen) 38 mg/dL (9.8-20.1); Calc. Creatinine Clearance 56 mL/min (70-130); Calcium 8.7 mg/dL (7.8-10.44); Glucose 150 mg/dL (83-110)
[2021-09-03] MEDS: Piperacillin/Tazobactam 3.375 GM in Sodium Chloride 0.9% 100 ML IVPB SCH ×3 (03:49→21:18)
[2021-09-03 03:52] LABS: #Eosinphils 0.1 thou/uL (0.0-0.7); #Lymphocytes 0.8 thou/uL (1.20-3.40); #Monocytes 1.7 thou/uL (0.11-0.59); #Neutrophils 15.4 thou/uL (1.40-6.50); %Basophils 0.1 % (0.0-1.0); %Eosinophils 0.6 % (0.0-10.0); %Lymphocytes 4.4 % (21.0-51.0); %Monocytes 9.5 % (0.0-10.0); %Neutrophils 85.4 % (42.0-75.0); Hemoglobin 7.6 g/dL (12.0-16.0); Mean Corpuscular HGB CONC 29.9 g/dL (32.0-36.0); Mean Corpuscular Hemoglobin 29.4 pg (27.0-31.0); Mean Corpuscular Volume 98.2 fL (78.0-98.0); Mean Platelet Volume 7.2 fL (7.4-10.4); Platelet Count 339 thou/uL (130-400); RBC Distribution Width 15.1 % (11.5-14.5); Red Blood Cell (RBC) Count 2.57 mill/uL (4.20-5.40)
[2021-09-03 03:58] LABS: Anion Gap 12 mmol/L (10-20); Carbon Dioxide 38 mmol/L (23-31); Chloride 91 mmol/L (98-107); Sodium 137 mmol/L (136-145)
[2021-09-03] MEDS: Ondansetron ODT 4 MG TAB PO PRN ×2 (08:27→21:19)
[2021-09-03] MEDS: Famotidine 20 MG TAB PO SCH ×2 (08:28→21:17)
[2021-09-03] MEDS: Furosemide 40 MG TAB PO SCH (08:28)
[2021-09-03] MEDS: Apixaban 5 MG TAB PO SCH ×2 (08:28→21:17)
[2021-09-03] MEDS: Amiodarone 200 MG TAB PO SCH (08:28)
[2021-09-03] MEDS: Digoxin 0.125 MG TAB PO SCH (08:28)
[2021-09-03] MEDS: Vancomycin 1 GM in Premix Bag 1 BAG IVPB SCH (09:29)
[2021-09-03] MEDS: [UNRECOGNIZED DRUG - OTHER] PO SCH (21:16)
[2021-09-03] MEDS: Acetaminophen 325 MG TAB PO PRN (21:19)
[2021-09-04] MEDS: Piperacillin/Tazobactam 3.375 GM in Sodium Chloride 0.9% 100 ML IVPB SCH ×3 (03:53→21:12)
[2021-09-04 04:21] LABS: #Eosinphils 0.1 thou/uL (0.0-0.7); #Monocytes 1.8 thou/uL (0.11-0.59); #Neutrophils 14.8 thou/uL (1.40-6.50); %Eosinophils 0.7 % (0.0-10.0); %Lymphocytes 5.8 % (21.0-51.0); %Neutrophils 83.6 % (42.0-75.0); Hemoglobin 7.5 g/dL (12.0-16.0); Mean Corpuscular HGB CONC 30.4 g/dL (32.0-36.0); Mean Corpuscular Hemoglobin 29.8 pg (27.0-31.0); Mean Corpuscular Volume 97.9 fL (78.0-98.0); Platelet Count 301 thou/uL (130-400); Red Blood Cell (RBC) Count 2.52 mill/uL (4.20-5.40); White Blood Cell (WBC) Count 17.8 thou/uL (4.8-10.8)
[2021-09-04 04:44] LABS: BUN (Urea Nitrogen) 43 mg/dL (9.8-20.1); Calc. Creatinine Clearance 61 mL/min (70-130); Calcium 8.8 mg/dL (7.8-10.44); Glucose 114 mg/dL (83-110)
[2021-09-04 04:55] LABS: Anion Gap 12 mmol/L (10-20); Carbon Dioxide 36 mmol/L (23-31); Chloride 90 mmol/L (98-107); Potassium 4.1 mmol/L (3.5-5.1); Sodium 134 mmol/L (136-145)
[2021-09-04 06:43] LABS: Digoxin 1.58 ng/mL (0.8-2.0)
[2021-09-04] MEDS: Vancomycin 1 GM in Premix Bag 1 BAG IVPB SCH (09:30)
[2021-09-04] MEDS: Famotidine 20 MG TAB PO SCH ×2 (09:31→21:12)
[2021-09-04] MEDS: Apixaban 5 MG TAB PO SCH (09:31)
[2021-09-04] MEDS: Furosemide 40 MG TAB PO SCH (09:31)
[2021-09-04] MEDS: Amiodarone 200 MG TAB PO SCH (09:31)
[2021-09-04] MEDS: Digoxin 0.125 MG TAB PO SCH (09:31)
[2021-09-04] MEDS: Ondansetron ODT 4 MG TAB PO PRN (21:12)
[2021-09-04] MEDS: Furosemide 20 MG/2 ML VIAL SLOW IVP SCH (21:12)
[2021-09-04] MEDS: [UNRECOGNIZED DRUG - OTHER] PO SCH (21:25)
[2021-09-05 04:35] LABS: #Eosinphils 0.2 thou/uL (0.0-0.7); #Lymphocytes 0.8 thou/uL (1.20-3.40); #Monocytes 1.8 thou/uL (0.11-0.59); #Neutrophils 14.6 thou/uL (1.40-6.50); %Basophils 0.2 % (0.0-1.0); %Eosinophils 1.2 % (0.0-10.0); %Lymphocytes 4.5 % (21.0-51.0); %Monocytes 10.3 % (0.0-10.0); %Neutrophils 83.7 % (42.0-75.0); Hemoglobin 7.6 g/dL (12.0-16.0); Mean Corpuscular HGB CONC 29.4 g/dL (32.0-36.0); Mean Corpuscular Hemoglobin 28.5 pg (27.0-31.0); Mean Corpuscular Volume 97.1 fL (78.0-98.0); Mean Platelet Volume 7.3 fL (7.4-10.4); Platelet Count 293 thou/uL (130-400); RBC Distribution Width 15.3 % (11.5-14.5); Red Blood Cell (RBC) Count 2.65 mill/uL (4.20-5.40); White Blood Cell (WBC) Count 17.4 thou/uL (4.8-10.8)
[2021-09-05 05:11] LABS: Anion Gap 11 mmol/L (10-20); BUN (Urea Nitrogen) 35 mg/dL (9.8-20.1); Calc. Creatinine Clearance 74 mL/min (70-130); Calcium 8.8 mg/dL (7.8-10.44); Carbon Dioxide 37 mmol/L (23-31); Chloride 89 mmol/L (98-107); Glucose 128 mg/dL (83-110); Potassium 3.9 mmol/L (3.5-5.1); Sodium 133 mmol/L (136-145)
[2021-09-05] MEDS: Piperacillin/Tazobactam 3.375 GM in Sodium Chloride 0.9% 100 ML IVPB SCH ×3 (05:17→19:45)
[2021-09-05] MEDS: Amiodarone 200 MG TAB PO SCH (08:50)
[2021-09-05] MEDS: Digoxin 0.125 MG TAB PO SCH (08:50)
[2021-09-05] MEDS: Furosemide 20 MG/2 ML VIAL SLOW IVP SCH ×2 (08:50→20:47)
[2021-09-05] MEDS: Famotidine 20 MG TAB PO SCH ×2 (08:50→20:47)
[2021-09-05] MEDS ORDERED: Albumin 25% 25 GM/100 ML BOT IVPB SCH (09:15)
[2021-09-05 16:16] LABS: Bilirubin Negative (Negative); Blood, Urine 3+ (Negative); Glucose, Urine (Dipstick) Normal (Negative); Ketone, Urine Negative (Negative); Leukocyte 500 Leu/uL (Negative); Nitrite Negative (Negative); Protein, Urine (Dipstick) 50 mg/dL (Neg-Trace); RBC/HPF Greater than 50 HPF (0-3); Specific Gravity, Urine 1.018 (1.002-1.036); Urobilinogen Normal mg/dL (Less than 2); WBC/HPF Greater than 50 HPF (0-3); pH, Urine 5.5 (5.0-9.0)
[2021-09-05 16:26] LABS: Bacteria/HPF 2+ HPF (None Seen); Clarity Cloudy (Clear); Squamous Epithelial 0-3 HPF (0-3)
[2021-09-05 16:27] LABS: Yeast-Budding 1+ HPF (None Seen); Yeast-Hyphae 2+ HPF (None Seen)
[2021-09-05 16:28] LABS: Urine Culture Reflex Yes Yes
[2021-09-05] MEDS: Ondansetron ODT 4 MG TAB PO PRN (19:45)
[2021-09-05] MEDS: [UNRECOGNIZED DRUG - OTHER] PO SCH (20:47)
[2021-09-05] MEDS ORDERED: Apixaban 5 MG TAB PO SCH (21:00)
[2021-09-06] MEDS: Piperacillin/Tazobactam 3.375 GM in Sodium Chloride 0.9% 100 ML IVPB SCH ×3 (04:52→20:45)
[2021-09-06 05:14] LABS: #Eosinphils 0.1 thou/uL (0.0-0.7); #Lymphocytes 0.8 thou/uL (1.20-3.40); #Monocytes 1.7 thou/uL (0.11-0.59); %Basophils 0.1 % (0.0-1.0); %Eosinophils 0.6 % (0.0-10.0); %Lymphocytes 4.2 % (21.0-51.0); %Monocytes 9.3 % (0.0-10.0); %Neutrophils 85.8 % (42.0-75.0); Hemoglobin 6.9 g/dL (12.0-16.0); Mean Corpuscular HGB CONC 30.2 g/dL (32.0-36.0); Mean Corpuscular Volume 96.2 fL (78.0-98.0); Mean Platelet Volume 7.1 fL (7.4-10.4); Platelet Count 310 thou/uL (130-400); RBC Distribution Width 15.3 % (11.5-14.5); Red Blood Cell (RBC) Count 2.38 mill/uL (4.20-5.40); White Blood Cell (WBC) Count 18.6 thou/uL (4.8-10.8)
[2021-09-06 05:33] LABS: Anion Gap 12 mmol/L (10-20); BUN (Urea Nitrogen) 28 mg/dL (9.8-20.1); Calc. Creatinine Clearance 71 mL/min (70-130); Calcium 8.9 mg/dL (7.8-10.44); Carbon Dioxide 36 mmol/L (23-31); Chloride 91 mmol/L (98-107); Glucose 122 mg/dL (83-110); Potassium 3.9 mmol/L (3.5-5.1); Sodium 135 mmol/L (136-145)
[2021-09-06] MEDS: Furosemide 20 MG/2 ML VIAL SLOW IVP SCH ×2 (08:57→20:01)
[2021-09-06] MEDS: Famotidine 20 MG TAB PO SCH ×2 (08:58→20:01)
[2021-09-06] MEDS: Amiodarone 200 MG TAB PO SCH (08:58)
[2021-09-06] MEDS ORDERED: Digoxin 0.125 MG TAB PO SCH (09:00)
[2021-09-06] MEDS ORDERED: Nystatin 500,000 UNITS/5 ML UDCUP SSW PRN (10:24)
[2021-09-06 12:47] VITALS: BMI 29.7
[2021-09-06] MEDS ORDERED: BIOTENE MOUTH SPRAY 44.3 ML PO PRN (13:56)
[2021-09-06] MEDS ORDERED: Aluminum & Magnesium Hydroxide 60 ML, Lidocaine 2% Viscous Solution 30 ML, diphenhydrAM... SSW PRN (14:00)
[2021-09-06] MEDS ORDERED: Aluminum & Magnesium Hydroxide 60 ML, Lidocaine 2% Viscous Solution 30 ML, diphenhydrAM... SSW SCH (14:15)
[2021-09-06] MEDS: Aluminum & Magnesium Hydroxide 60 ML, Lidocaine 2% Viscous Solution 30 ML, diphenhydrAM... SSW PRN ×2 (14:55→14:56)
[2021-09-06] MEDS: Ondansetron ODT 4 MG TAB PO PRN (20:02)
[2021-09-06] MEDS: [UNRECOGNIZED DRUG - OTHER] PO SCH (20:49)
[2021-09-06] MEDS: Acetaminophen 325 MG TAB PO PRN (22:35)
[2021-09-07] MEDS: Piperacillin/Tazobactam 3.375 GM in Sodium Chloride 0.9% 100 ML IVPB SCH ×3 (03:56→20:25)
[2021-09-07 05:25] LABS: #Eosinphils 0.1 thou/uL (0.0-0.7); #Lymphocytes 0.9 thou/uL (1.20-3.40); #Monocytes 2.2 thou/uL (0.11-0.59); #Neutrophils 15.6 thou/uL (1.40-6.50); %Eosinophils 0.7 % (0.0-10.0); %Lymphocytes 4.5 % (21.0-51.0); %Monocytes 11.6 % (0.0-10.0); %Neutrophils 83.2 % (42.0-75.0); Hemoglobin 8.3 g/dL (12.0-16.0); Mean Corpuscular HGB CONC 30.5 g/dL (32.0-36.0); Mean Corpuscular Hemoglobin 28.4 pg (27.0-31.0); Mean Corpuscular Volume 93.1 fL (78.0-98.0); Mean Platelet Volume 7.2 fL (7.4-10.4); Platelet Count 299 thou/uL (130-400); RBC Distribution Width 17.8 % (11.5-14.5); Red Blood Cell (RBC) Count 2.92 mill/uL (4.20-5.40); White Blood Cell (WBC) Count 18.7 thou/uL (4.8-10.8)
[2021-09-07 05:44] LABS: BUN (Urea Nitrogen) 28 mg/dL (9.8-20.1); Calc. Creatinine Clearance 70 mL/min (70-130); Calcium 9.2 mg/dL (7.8-10.44); Glucose 119 mg/dL (83-110)
[2021-09-07 05:53] LABS: Anion Gap 15 mmol/L (10-20); Carbon Dioxide 33 mmol/L (23-31); Chloride 92 mmol/L (98-107); Potassium 4.1 mmol/L (3.5-5.1); Sodium 136 mmol/L (136-145)
[2021-09-07] MEDS: Furosemide 20 MG/2 ML VIAL SLOW IVP SCH ×2 (08:46→20:26)
[2021-09-07] MEDS: Famotidine 20 MG TAB PO SCH ×2 (08:46→20:26)
[2021-09-07] MEDS: Amiodarone 200 MG TAB PO SCH (08:46)
[2021-09-07] MEDS ORDERED: Furosemide 40 MG/4 ML VIAL SLOW IVP SCH (12:00)
[2021-09-07] MEDS: [UNRECOGNIZED DRUG - OTHER] PO SCH (20:26)
[2021-09-07] MEDS: Ondansetron ODT 4 MG TAB PO PRN (20:26)
[2021-09-08] MEDS: Piperacillin/Tazobactam 3.375 GM in Sodium Chloride 0.9% 100 ML IVPB SCH ×3 (04:17→20:07)
[2021-09-08 06:02] LABS: Anion Gap 16 mmol/L (10-20); BUN (Urea Nitrogen) 26 mg/dL (9.8-20.1); Calc. Creatinine Clearance 72 mL/min (70-130); Calcium 9.5 mg/dL (7.8-10.44); Carbon Dioxide 29 mmol/L (23-31); Chloride 94 mmol/L (98-107); Glucose 122 mg/dL (83-110); Potassium 4.4 mmol/L (3.5-5.1); Sodium 135 mmol/L (136-145)
[2021-09-08 06:20] LABS: Band 8 % (5-11); Hemoglobin 9.1 g/dL (12.0-16.0); Lymphocytes 8 % (21-51); MDiff Complete? YES; Mean Corpuscular HGB CONC 30.5 g/dL (32.0-36.0); Mean Corpuscular Volume 95.1 fL (78.0-98.0); Mean Platelet Volume 7.6 fL (7.4-10.4); Monocytes 3 % (0-10); Neutrophil 81 % (42-75); Platelet Count 344 thou/uL (130-400); RBC Distribution Width 18.1 % (11.5-14.5); Red Blood Cell (RBC) Count 3.14 mill/uL (4.20-5.40); White Blood Cell (WBC) Count 22.9 thou/uL (4.8-10.8)
[2021-09-08] MEDS: Amiodarone 200 MG TAB PO SCH ×2 (07:48→11:31)
[2021-09-08] MEDS: Digoxin 0.125 MG TAB PO SCH ×2 (07:48→11:31)
[2021-09-08] MEDS: Famotidine 20 MG TAB PO SCH ×3 (07:48→20:07)
[2021-09-08] MEDS ORDERED: Furosemide 40 MG/4 ML VIAL SLOW IVP SCH (08:00)
[2021-09-08 10:08] VITALS: BP 150/68
[2021-09-08] MEDS: [UNRECOGNIZED DRUG - OTHER] PO SCH (20:07)
[2021-09-08] MEDS: Ondansetron ODT 4 MG TAB PO PRN (20:13)
[2021-09-08] MEDS ORDERED: Apixaban 5 MG TAB PO SCH (21:00)
[2021-09-09] MEDS: Piperacillin/Tazobactam 3.375 GM in Sodium Chloride 0.9% 100 ML IVPB SCH ×2 (05:42→13:37)
[2021-09-09] MEDS: Famotidine 20 MG TAB PO SCH (08:18)
[2021-09-09] MEDS: Amiodarone 200 MG TAB PO SCH (08:18)
[2021-09-09] MEDS: Furosemide 20 MG/2 ML VIAL SLOW IVP SCH (09:13)
[2021-09-09 12:11] VITALS: TEMP 99.5
[2021-09-09] MEDS ORDERED: Lorazepam 2 MG/ML VIAL SLOW IVP PRN (13:27)
== END 2021-09-09 18:10 | disposition hospice, home (50) | DRG 180 ==
LOC: ERS 05:08 → ERHOLD 05:43 → IMCU/EMU 08:45 → 2NO 09-03 19:00 → IMCU/EMU 09-08 09:40
PROVIDERS: ADMIT Internal Medicine; ATTEND Internal Medicine
PROC: 5A09457 Assistance with Respiratory Ventilation, 24-96 Consecutive Hours, Continuous Positive Airway Pressure (ICD-10-PCS; principal; 2021-08-31)
PROC: 3E03329 Introduction of Other Anti-infective into Peripheral Vein, Percutaneous Approach (ICD-10-PCS; 2021-08-31)
PROC: 30233N1 Transfusion of Nonautologous Red Blood Cells into Peripheral Vein, Percutaneous Approach (ICD-10-PCS; 2021-09-06)
DX: C34.91 Malignant neoplasm of unspecified part of right bronchus or lung (principal); J18.9 Pneumonia, unspecified organism; J96.21 Acute and chronic respiratory failure with hypoxia; J96.22 Acute and chronic respiratory failure with hypercapnia; I50.33 Acute on chronic diastolic (congestive) heart failure; C77.1 Secondary and unspecified malignant neoplasm of intrathoracic lymph nodes; I48.11 Longstanding persistent atrial fibrillation; J44.0 Chronic obstructive pulmonary disease with (acute) lower respiratory infection; C79.51 Secondary malignant neoplasm of bone; D62 Acute posthemorrhagic anemia; E87.3 Alkalosis; Z66 Do not resuscitate; Z20.822 Contact with and (suspected) exposure to COVID-19; Z51.5 Encounter for palliative care; I27.20 Pulmonary hypertension, unspecified; I11.0 Hypertensive heart disease with heart failure; I89.0 Lymphedema, not elsewhere classified; R31.9 Hematuria, unspecified; L89.301 Pressure ulcer of unspecified buttock, stage 1; Z88.5 Allergy status to narcotic agent; Z88.6 Allergy status to analgesic agent; Z88.8 Allergy status to other drugs, medicaments and biological substances; Z79.01 Long term (current) use of anticoagulants; Z79.82 Long term (current) use of aspirin; Z79.51 Long term (current) use of inhaled steroids; Z79.02 Long term (current) use of antithrombotics/antiplatelets; Z79.52 Long term (current) use of systemic steroids; Z79.899 Other long term (current) drug therapy; Z99.81 Dependence on supplemental oxygen; Z90.49 Acquired absence of other specified parts of digestive tract; Z98.890 Other specified postprocedural states; Z87.891 Personal history of nicotine dependence; Z80.0 Family history of malignant neoplasm of digestive organs
CPT/HCPCS: 36415; 36416; 36430; 36600; 71045; 76770; 80048; 80162; 80202; 81001; 82805; 83880; 85025; 86850; 86900; 86901; 87086; 93970; 94640; 94660; J1940; J2405; J2543; J3370; J3490; J7620; P9016; P9047; Q0162; Q0163